=== PATIENT | male | born 1960 | race Caucasian/White ===

== ENCOUNTER 2019-06-24 16:37 | Emergency (ER) | payer BC ==
--- NOTE | 2019-06-24 17:23 | UC ---
General HPI - HPI Summary HPI Summary: Patient is a 58yo male presenting with for tick bite that he states was attached for approx 2 hours today after he took his dog for a walk. The tick was on his left upper posterior thigh and was removed entirely. Patient states he was hospitalized one year ago and "almost " due to what was presumably Lyme disease although he never tested positive for it. Patient states that 3 other people in his record had been hospitalized for Lyme disease and he is concerned that he may develop it again. 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 - Allergy/Home Medications Allergies/Adverse Reactions: Allergies Allergy/AdvReac Type Severity Reaction Status Date / Time No Known Allergies Allergy Verified 06/24/19 17:17 Home Medications: Home Medications Dolutegravir/Rilpivirine [Juluca 50-25 mg] 1 tab PO BEDTIME 06/24/19 [History Confirmed 06/24/19] Meloxicam 7.5 mg PO DAILY PRN 06/24/19 [History Confirmed 06/24/19] Tamsulosin CAP* [Flomax CAP*] 0.4 mg PO BEDTIME 06/24/19 [History Confirmed ] PMH/Surg Hx/FS Hx/Imm Hx Other History Of: HIV - Surgical History Surgical History: Yes Surgery Procedure, Year, and Place: TRIGGER FINGER LEFT MIDDLE FINGER 2012 Review of Systems All Other Systems Reviewed And Are Negative: No Constitutional: Positive: Negative Skin: Positive: Other - tick bite to left posterior thigh Respiratory: Positive: Negative Cardiovascular: Positive: Negative Gastrointestinal: Positive: Negative Neurological: Positive: Negative Physical Exam Triage Information Reviewed: Yes Appearance: Well-Appearing, No Pain Distress, Well-Nourished Vital Signs: Vital Signs (72 hours) 06/24/19 17:19 Temperature 98.4 F Pulse Rate 64 Respiratory 20 Rate Blood Pressure 129/88 (mmHg) O2 Sat by Pulse 98 Oximetry Vital Signs Reviewed: Yes Eyes: Positive: Conjunctiva Clear ENT: Positive: Hearing grossly normal Neck: Positive: Supple Respiratory: Positive: No respiratory distress Neurological: Positive: Alert Psychological: Positive: Age Appropriate Behavior Skin: Positive: Other - 1cm area of erythema on left posterior thigh where tick was attached. no signs of infection Course/Dx - Course Course Of Treatment: Educated patient on tick bites and Lyme disease. Patient stated he feels more comfortable being treated for Lyme disease with prophylactic dose of doxy despite short attachment time of tick. Instructed him to follow up with PCP if he experiences rash or other s/s of Lyme within the next month. Patient was understanding and agreed with treatment plan. - Diagnoses Provider Diagnosis: Tick bite of left thigh Discharge ED - Sign-Out/Discharge Documenting (check all that apply): Patient Departure All imaging exams completed and their final reports reviewed: No Studies - Discharge Plan Condition: Stable Disposition: HOME Prescriptions: DOXYcycline CAP(*) [DOXYcycline 100MG CAP(*)] 200 mg PO ONCE #2 cap Patient Education Materials: Tick Bite (ED) Referrals: [facility] [Outside] - If Needed [facility] [Outside] - If Needed Additional Instructions: As discussed, take the one-time dose of Doxycycline prescribed to you to prevent Lyme Disease. No further treatment is required. Follow up with your PCP if within the next month you experience muscle weakness , severe headaches, or a rash where you were the tick bit you. Go to the emergency room if you experience increasing redness, warmth, or drainage of the area within the next few days. - Billing Disposition and Condition Condition: STABLE Disposition: Home
[2019-06-24 17:25] VITALS: BP 129/88
== END 2019-06-24 17:46 | disposition home or self-care (01) ==
LOC: UCCORT 16:37
DX: S70.362A Insect bite (nonvenomous), left thigh, initial encounter (principal); W57.XXXA Bitten or stung by nonvenomous insect and other nonvenomous arthropods, initial encounter; Y92.9 Unspecified place or not applicable
CPT/HCPCS: 99202; G0463